=== PATIENT | female | born 1950 | race Caucasian/White ===

== ENCOUNTER → 2019-07-29 | Outpatient (CLI) | payer MEDICARE | END | disposition home or self-care (01) | LOC: CFH 11:56 | PROVIDERS: ATTEND Family Medicine | DX: J98.11 Atelectasis (principal) | CPT/HCPCS: 71046 ==

== ENCOUNTER → 2019-10-14 | Outpatient (CLI) | payer MEDICARE | END | disposition home or self-care (01) | LOC: CFH 14:07 | PROVIDERS: ATTEND Family Medicine | DX: R05 Cough (principal) | CPT/HCPCS: 71046 ==

== ENCOUNTER → 2020-02-14 | Outpatient (CLI) | payer MEDICARE | END | disposition home or self-care (01) | LOC: CFH 11:13 | PROVIDERS: ATTEND Family Medicine | DX: Z12.31 Encounter for screening mammogram for malignant neoplasm of breast (principal) | CPT/HCPCS: 77067 ==

== ENCOUNTER → 2020-06-12 | Outpatient (CLI) | payer MEDICARE, MEDICAID ==
[~2020-06-12] MED LIST: SINCALIDE (KINEVAC) 5 MCG ONE
== END | disposition home or self-care (01) ==
LOC: RAD 10:30
PROVIDERS: ATTEND Surgery
DX: K81.2 Acute cholecystitis with chronic cholecystitis (principal)
CPT/HCPCS: 78227; A9537; J2805

== ENCOUNTER 2020-07-11 10:49 | Day surgery (SDC) | payer MEDICARE, MEDICAID ==
[~2020-07-11] VITALS: Ht 160 cm; Wt 80.4 kg
[~2020-07-11 10:49] MED LIST changes: +BUPIVACAINE/PF 0.5% ONE; +EPINEPHRINE 1 MG/ML, 1ML ONE; +LEVO88TA4 PO; +MULT-658 PO; +NAPR-685 PO; -SINCALIDE (KINEVAC) 5 MCG ONE
[2020-07-11 11:30] VITALS: BP 119/78
[2020-07-11] MEDS ORDERED: LACTATED RINGERS 1,000 ML IV SCH (11:30)
[2020-07-11] MEDS ORDERED: INDOCYANINE GREEN 25 MG VIAL IVPush ONE (11:30)
[2020-07-11] MEDS ORDERED: LIDOCAINE-MPF 1%, 2ML INFIL ONE (11:30)
[2020-07-11] MEDS ORDERED: PROMETHAZINE 25 MG/ML, 1ML IVPush PRN (11:30)
[2020-07-11] MEDS ORDERED: KETOROLAC 30 MG/1 ML IVPush PRN (11:30)
[2020-07-11] MEDS ORDERED: HYDROcodone/APAP 7.5-325MG/15ML UDC PO PRN (11:30)
[2020-07-11] MEDS ORDERED: MEPERIDINE/PF 25MG/0.5ML IVPush PRN (11:30)
[2020-07-11] MEDS ORDERED: CHLORHEXIDINE 15 ML UDC MM ONE (11:30)
[2020-07-11] MEDS ORDERED: HYDROmorphone 1 MG/ML, 1ML INJ IVPush PRN (11:30)
[2020-07-11] MEDS ORDERED: OXYcodone 5 MG/5 ML ORAL.SOL UDC PO PRN (11:30)
[2020-07-11] MEDS ORDERED: MIDAZOLAM 1 MG/ML, 2ML ONE (12:21)
[2020-07-11] MEDS ORDERED: FENTANYL PF 100 MCG/2ML ONE ×3 (12:21→15:24)
[2020-07-11] MEDS ORDERED: SUCCINYLCHOLINE 20 MG/ML, 10ML ONE (12:22)
[2020-07-11] MEDS ORDERED: NEOSTIGMINE 1 MG/ML, 10ML ONE (12:22)
[2020-07-11] MEDS ORDERED: GLYCOPYRROLATE 0.2MG/1ML, 5ML ONE (12:22)
[2020-07-11] MEDS ORDERED: DEXAMETHASONE 4 MG/ML, 1ML ONE (12:22)
[2020-07-11] MEDS ORDERED: ONDANSETRON 2MG/ML, 2ML ONE (12:22)
[2020-07-11] MEDS ORDERED: ROCURONIUM 10MG/ML,5ML ONE (12:22)
[2020-07-11] MEDS ORDERED: PROPOFOL 10 MG/ML, 20ML ONE (12:22)
[2020-07-11] MEDS ORDERED: CEFAZOLIN 1,000 MG ONE (12:22)
[2020-07-11] MEDS ORDERED: EPHEDRINE 50 MG/ML, 1ML ONE (14:10)
[2020-07-11] MEDS: FENTANYL PF 100 MCG/2ML IV PRN ×4 (15:10→15:44)
[2020-07-11] MEDS ORDERED: OXYcodone 5 MG/5 ML ORAL.SOL UDC ONE (15:25)
== END 2020-07-11 18:45 | disposition home or self-care (01) ==
LOC: OUT 10:49 → EDSTATUS 13:00 → OUT 18:45
PROVIDERS: ATTEND Surgery
DX: K80.10 Calculus of gallbladder with chronic cholecystitis without obstruction (principal); K82.8 Other specified diseases of gallbladder; K44.9 Diaphragmatic hernia without obstruction or gangrene; E03.9 Hypothyroidism, unspecified; Z79.890 Hormone replacement therapy; Z79.899 Other long term (current) drug therapy; Z88.2 Allergy status to sulfonamides
CPT/HCPCS: 47563; 74300; 87635; 88304; 93005; J0171; J0330; J0690; J1100; J1885; J2250; J2405; J2704; J2710; J3010; J7120